=== PATIENT | female | born 1995 | race Caucasian/White ===

== ENCOUNTER 2016-06-27 10:49 | Outpatient (CLI) | payer BC, OTHER | END 2016-06-27 12:26 | disposition home or self-care (01) | LOC: GENOP 10:49 | DX: O99.89 Other specified diseases and conditions complicating pregnancy, childbirth and the puerperium (principal); R10.9 Unspecified abdominal pain; Z3A.24 24 weeks gestation of pregnancy | CPT/HCPCS: 81001; G0463 ==

== ENCOUNTER 2016-08-31 22:29 | Outpatient (CLI) | payer BC, OTHER | END 2016-09-01 00:22 | disposition home or self-care (01) | LOC: GENOP 22:29 | DX: O99.89 Other specified diseases and conditions complicating pregnancy, childbirth and the puerperium (principal); R10.30 Lower abdominal pain, unspecified; M54.9 Dorsalgia, unspecified; R42 Dizziness and giddiness; N89.8 Other specified noninflammatory disorders of vagina; Z3A.33 33 weeks gestation of pregnancy | CPT/HCPCS: G0463 ==

== ENCOUNTER 2016-09-29 11:19 | Outpatient (CLI) | payer BC, OTHER | END 2016-09-29 12:51 | disposition home or self-care (01) | LOC: GENOP 11:19 | DX: O42.92 Full-term premature rupture of membranes, unspecified as to length of time between rupture and onset of labor (principal); Z3A.37 37 weeks gestation of pregnancy | CPT/HCPCS: 76815; 81001 ==